=== PATIENT | male | born 1950 | race Two or more races ===

== ENCOUNTER 2021-03-26 14:58 | Emergency (ER) | payer SELFPAY ==
[~2021-03-26] VITALS: Ht 185.4 cm; Wt 111.0 kg
[2021-03-26 17:35] LABS: BASOPHILS % 0.2 % (0.0-2.0); EOSINOPHILS % 0.1 % (0.0-5.0); HEMATOCRIT. 42.7 % (42.0-52.0); HEMOGLOBIN. 14.7 g/dL (14.0-18.0); LYMPHOCYTES % 13.7 % (20.0-50.0); MEAN CORPUSCULAR HEMOGLOBIN 30.8 pg (28.0-32.0); MEAN CORPUSCULAR VOLUME 89.1 fL (80.0-94.0); MEAN PLATELET VOLUME 8.2 fl (7.4-10.4); MONOCYTES % 11.6 % (2.0-8.0); NEUTROPHILS % 74.4 % (40.0-76.0); PLATELET 213 x1000/uL (130-400); RED BLOOD CELL COUNT 4.79 mill/uL (4.7-6.1); RED CELL DISTRIBUTION WIDTH 14.5 % (11.6-14.6)
[2021-03-26 17:37] LABS: CHLORIDE 114 mEq/L (98-107)
[2021-03-26 19:10] VITALS: BP 138/82
== END 2021-03-26 19:30 | disposition home or self-care (01) ==
LOC: ER 15:26
DX: N28.9 Disorder of kidney and ureter, unspecified (principal); T73.0XXA Starvation, initial encounter; X58.XXXA Exposure to other specified factors, initial encounter; E11.9 Type 2 diabetes mellitus without complications
CPT/HCPCS: 36415; 80053; 82962; 85025; 93005; 99284